=== PATIENT | male | born 1940 | race Caucasian/White ===

== ENCOUNTER → 2024-06-10 | Outpatient (CLI) | payer MEDICARE, SELFPAY ==
[2024-06-10 10:33] LABS: Basophils # (Auto) 0.1 Thou/mm3 (0.0-0.2); Basophils % (Auto) 1 % (0-2.5); Eosinophils # (Auto) 0.1 Thou/mm3 (0.0-0.5); Eosinophils % (Auto) 1 % (0-10); Hematocrit 48.1 % (41.0-53.0); Hemoglobin 17.1 g/dL (13.5-16.0); Immature Granulocytes % (Auto) 0 % (0-0); Immature Granulocytes Auto 0.01 Thou/mm3 (0.00-0.00); Lymphocytes # (Auto) 1.6 Thou/mm3 (1.0-4.8); Lymphocytes % (Auto) 28 % (10-50); Mean Corpuscular HGB Conc 35.6 g/dl (31.0-37.0); Mean Corpuscular Hemoglobin 32.3 pg (25.0-35.0); Mean Corpuscular Volume 91 fL (80-100); Monocytes # (Auto) 0.5 Thou/mm3 (0.0-0.8); Monocytes % (Auto) 9 % (0-12); Neutrophils # (Auto) 3.5 Thou/mm3 (1.8-7.7); Neutrophils % (Auto) 60 % (37-80); Nucleated Red Blood Cell % 0 /100 WBC (0); Platelet Count 209 Thou/mm3 (140-440); White Blood Count 5.8 Thou/mm3 (3.8-10.6)
[2024-06-10 10:48] LABS: Alanine Aminotransferase 74 U/L (10-49); Albumin, Serum 4.4 gm/dL (3.4-4.8); Albumin/Globulin Ratio 1.6 (1.2-2.2); Alkaline Phosphatase 61 U/L (46-116); Anion Gap 9 (7-16); Aspartate Amino Transferase 45 U/L (0-34); BUN/Creatinine Ratio 15 Ratio (12-20); Blood Urea Nitrogen 16 mg/dL (9-23); Calcium 9.4 mg/dL (8.3-10.6); Calcium (Corrected) 9.4 mg/dL (8.5-10.1); Carbon Dioxide 26.7 mMol/L (20.0-31.0); Cardiac Risk Estimate 6.7 RATIO (4.0-6.7); Chloride 108 mMol/L (98-107); Cholesterol 221 mg/dL (132-200); Creatinine (Component) 1.1 mg/dL (0.6-1.3); Globulin 2.7 gm/dL (2.3-3.5); Glucose 100 mg/dL (74-106); HDL Cholesterol 33 mg/dL (40-60); LDL Cholesterol,Calculated 165 mg/dL (0-130); Osmolality,Calculated 288 (275-295); Sodium 144 mMol/L (136-145); Thyroid Stimulating Hormone 5.49 uIU/mL (0.55-4.78); Total Protein 7.1 gm/dL (5.7-8.2); Triglycerides 116 mg/dL (30-150); eGFR > 60 See Note
== END | disposition home or self-care (01) ==
LOC: COPL 09:37
PROVIDERS: PCP Family Medicine; Referring Provider Nurse Practitioner Family; Visit Provider Nurse Practitioner Family
DX: Z00.00 Encounter for general adult medical examination without abnormal findings (principal)
CPT/HCPCS: 36415; 80053; 80061; 84443; 85025

== ENCOUNTER → 2024-06-27 | Outpatient (CLI) | payer MEDICARE, SELFPAY ==
--- NOTE | 2024-06-27 11:30 | XR_ITS ---
Examination: Abdomen sonogram, complete Date and time of exam: June 27, 2024 1133 hours INDICATIONS: Elevated liver function tests on laboratory examination 4 weeks ago. Technique: Multiple real-time grayscale transabdominal sonographic images of the abdomen have been obtained. Findings: Multiple gallstones Gallbladder wall is thickened 0.45 cm Common bile duct 0.4 cm Pancreatic head 2.0 cm Mid distal aorta visualized not enlarged Liver 14.4 cm fatty infiltration Normal hepatopedal portal venous flow IVC obscured by bowel gas Right kidney 10.7 cm renal cortex 1.3 cm 15 mm midpole cyst Minimal hydronephrosis Left kidney 11.6 cm cortex 2.4 cm 9 mm calculus Mild hydronephrosis Spleen 10.2 cm IMPRESSION: Cholelithiasis, consider HIDA scan follow-up to exclude cystic duct obstruction Fatty liver Minimal right mild left hydronephrosis 9 mm left renal calculus
[2024-06-27 15:06] LABS: Ferritin 278 ng/mL (10.5-307.3)
== END | disposition home or self-care (01) ==
LOC: CDIM 11:21 → COPL 11:56
PROVIDERS: PCP Family Medicine; Referring Provider Nurse Practitioner Family; Visit Provider Radiology Diagnostic Radiology
DX: K80.20 Calculus of gallbladder without cholecystitis without obstruction (principal); K76.0 Fatty (change of) liver, not elsewhere classified; N13.2 Hydronephrosis with renal and ureteral calculous obstruction; D58.2 Other hemoglobinopathies
CPT/HCPCS: 36415; 76700; 82728

== ENCOUNTER → 2024-08-15 | Outpatient (CLI) | payer MEDICARE, SELFPAY ==
[2024-08-15 09:04] LABS: Flow Cytometry* See Sep Rpt; Misc Send Out* See Sep Rpt; Quantiferon-TB* See Sep Rpt
[2024-08-15 09:32] LABS: Basophils # (Auto) 0.1 Thou/mm3 (0.0-0.2); Basophils % (Auto) 1 % (0-2.5); Eosinophils # (Auto) 0.1 Thou/mm3 (0.0-0.5); Eosinophils % (Auto) 3 % (0-10); Hematocrit 47.7 % (41.0-53.0); Hemoglobin 16.4 g/dL (13.5-16.0); Immature Granulocytes Auto 0.02 Thou/mm3 (0.00-0.00); Immature Reticulocyte Fraction 4.6 % (2.3-13.4); Lymphocytes # (Auto) 1.3 Thou/mm3 (1.0-4.8); Lymphocytes % (Auto) 27 % (10-50); Mean Corpuscular HGB Conc 34.4 g/dl (31.0-37.0); Mean Corpuscular Hemoglobin 32.3 pg (25.0-35.0); Mean Corpuscular Volume 94 fL (80-100); Monocytes # (Auto) 0.5 Thou/mm3 (0.0-0.8); Monocytes % (Auto) 10 % (0-12); Neutrophils # (Auto) 2.9 Thou/mm3 (1.8-7.7); Neutrophils % (Auto) 59 % (37-80); Nucleated Red Blood Cell # 0.00 Thou/mm3 (0.00-0.00); Nucleated Red Blood Cell % 0 /100 WBC (0); Platelet Count 184 Thou/mm3 (140-440); RDW Standard Deviation 43.8 fL (35.1-43.9); Red Blood Count 5.07 Miln/mm3 (4.50-5.90); Reticulocyte % (Auto) 1.5 % (0.5-1.5); Reticulocyte Absolute Auto 77.6 Biln/L (25.0-75.0); Reticulocyte Hgb Content 36.6 pg (28.0-35.0); White Blood Count 4.9 Thou/mm3 (3.8-10.6)
[2024-08-15 09:55] LABS: Alanine Aminotransferase 40 U/L (10-49); Albumin, Serum 4.2 gm/dL (3.4-4.8); Albumin/Globulin Ratio 1.7 (1.2-2.2); Alkaline Phosphatase 61 U/L (46-116); Anion Gap 10 (7-16); Aspartate Amino Transferase 27 U/L (0-34); BUN/Creatinine Ratio 15 Ratio (12-20); Bilirubin,Total 0.6 mg/dL (0.3-1.2); Blood Urea Nitrogen 15 mg/dL (9-23); Calcium 9.3 mg/dL (8.3-10.6); Calcium (Corrected) 9.3 mg/dL (8.5-10.1); Carbon Dioxide 25.9 mMol/L (20.0-31.0); Chloride 107 mMol/L (98-107); Creatinine (Component) 1.0 mg/dL (0.6-1.3); Globulin 2.5 gm/dL (2.3-3.5); Glucose 78 mg/dL (74-106); LDH (Lactate Dehydrogenase) 186 U/L (120-246); Osmolality,Calculated 284 (275-295); Potassium 4.1 mMol/L (3.4-5.1); Sodium 143 mMol/L (136-145); Total Protein 6.7 gm/dL (5.7-8.2); eGFR > 60 See Note
[2024-08-15 10:03] LABS: Folate 11.85 ng/mL (>5.38); Vitamin B12 217 pg/mL (211-911)
[2024-08-15 10:04] LABS: Ferritin 310 ng/mL (10.5-307.3); Iron 86 mcg/dL (65-175); Percent Iron Saturation 31 % (20-55); Prostate Specific Antigen 4.47 ng/mL (0-4.00); Total Iron Binding Capacity 273 mcg/dL (250-425); Unsaturated Iron Binding 187 (225-295)
[2024-08-15 13:44] LABS: Cocci Serology, IgM Negative (Negative)
[2024-08-16 12:42] LABS: Cocci Serology, IgG Negative (Negative)
[2024-08-18 06:32] LABS: Erythropoietin (EPO)* 8.9 mIU/mL (2.6-18.5)
== END | disposition home or self-care (01) ==
LOC: COPL 08:40 → SCTO 08:48
PROVIDERS: PCP Family Medicine; Referring Provider Internal Medicine Hematology & Oncology; Visit Provider Internal Medicine Hematology & Oncology
DX: D75.9 Disease of blood and blood-forming organs, unspecified (principal); C61 Malignant neoplasm of prostate
CPT/HCPCS: 36415; 80053; 82607; 82668; 82728; 82746; 83540; 83550; 83615; 84153; 85025; 85046; 86331; 86480; 86635

== ENCOUNTER 2024-09-07 10:29 | Outpatient (RCR) | payer MEDICARE, SELFPAY ==
--- NOTE | 2024-08-28 23:58 | CTCCONSULT_ITS ---
Patient: RITIKA MCMAHAN : 1940 MR#: [id number] Page 2 of 5 CONSULTATION NOTE DATE OF CONSULTATION: 08/11/2024 NAME: RITIKA MCMAHAN ACCOUNT: [id number] : 1940 AGE: 83 REFERRING PHYSICIAN: Laura Jara MD PRIMARY PHYSICIAN: REASON FOR VISIT: Mr. Mcmahan, an 83-year-old male with prostate cancer, presented with elevated PSA, high hemoglobin, and a 6-month hacking cough. He reports snoring but denies smoking, alcohol use, or current medications. Laboratory tests revealed polycythemia with very high hemoglobin and hematocrit. Management included scheduling phlebotomy with IV fluids, ordering JAK2 mutation test, erythropoietin levels, CBC, comprehensive metabolic panel, chest/abdomen/pelvis CT, and MRI of liver and spleen. A sleep study was ordered to evaluate for obstructive sleep apnea as a potential cause of secondary polycythemia. 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 He reports a history of prostate cancer and a hacking cough persisting for 6 months. The patient denies smoking, alcohol consumption, or use of recreational drugs. He reports snoring, as noted by his , but has never had a sleep study or been diagnosed with sleep apnea. Mr. Mcmahan denies any problems with depression. He has received a flu shot since September and has had the original two COVID vaccinations. Mr. Mcmahan is not currently taking any medications, including [id number] supplements or vitamins. He denies receiving any injections, such as Lupron, from Dr. Dean. The patient reports no known allergies to medications. The patient's hacking cough has been ongoing for 6 months, but no further details about its characteristics or impact on daily functioning were provided. Mr. Mcmahan denies taking fosinopril. Review of Systems General: Negative for fever, chills, fatigue, muscle aches, appetite or weight changes. Respiratory: Positive for snoring, hacking cough for 6 months. Psychiatric: Negative for depression. Objective: Laboratory, Imaging, and Diagnostic Test Results - PSA: Elevated (specific value not provided) - Hemoglobin: Very high (specific value not provided) - Hematocrit: Too high (specific value not provided) OTHER MEDICAL HISTORY/CONDITIONS: PROSTATE CA DX 2019, DR. DEAN ERYTHROCYTOSIS HYPOTHYROID HEARING LOSS RT KNEE REPAIR 2022 HERNIA REPAIR 2009 FAMILY HISTORY: Patient?denies?family?cancer?history. 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 Tobacco?Use:?Denies ETOH?Use:?Denies Drug?Note:?Denies Social?History?Note:?Lives?with? MEDICATIONS: 1. No Medications Medications Last Reconciled by Billie Andre RN on 08/11/2024 ALLERGIES: No Known Drug Allergies REVIEW OF SYSTEMS: A complete 14-point review of systems was performed and is negative except as noted in interval history. PHYSICAL EXAMINATION: VITAL SIGNS: B/P?128/77, Height?71?inches, Oxygen?Saturation?95% Weight?197?lbs PAIN: 0 - No pain ECOG Performance Status: 0 - Asymptomatic and fully active GENERAL APPEARANCE: Appears well, in no apparent distress, appropriately interactive. HEENT: Normocephalic, no temporal wasting, normal conjunctiva, no scleral icterus, normal hearing, lips without lesions, neck normal range of motion. CARDIOVASCULAR: Not assessed. PULMONARY: Normal respiratory effort, no respiratory distress or use of accessory muscles, speaking in full sentences, no tachypnea. EXTREMITIES: No pedal edema or cyanosis. SKIN: Normal skin appearance. NEUROLOGIC: Alert and oriented x4. PSHYCHIATRIC: Appropriate affect, mood normal, behavior normal, intact thought and speech. LABORATORY DATA: I have personally reviewed and interpreted each of the patient?s relevant lab tests, abnormal findings are below: Date 08/15/24 ??WHITE?BLOOD?COUNT?(Thou/mm3) 4.9 ??RED?BLOOD?COUNT?(Miln/mm3) 5.07 ??HEMOGLOBIN?(gm/dl) 16.4?H ??HEMATOCRIT?(%) 47.7 ??PLATELET?COUNT?(Thou/mm3) 184 ??NEUTROPHILS?%,?AUTO?(%) 59 ??LYMPH?%,?AUTO?(%) 27 ??NEUTROPHILS,?AUTO?(Thou/mm3) 2.9 ??GLUCOSE,RANDOM?(mg/dL) 78 ??BLOOD?UREA?NITROGEN?(mg/dL) 15 ??CREATININE?(mg/dL) 1.00 ??SODIUM?(mmol/L) 143 ??POTASSIUM?(mmol/L) 4.1 ??CHLORIDE?(mmol/L) 107 ??CrCl?(CandG)?(ml/min) 71.98 ??AST/SGOT?(Unit/L) 27 ??ALT/SGPT?(Unit/L) 40 ??ALKALINE?PHOSPHATASE?(Unit/L) 61 ??BILIRUBIN,?TOTAL?(mg/dL) 0.6 ??PROTEIN?TOTAL?(gm/dl) 6.7 ??ALBUMIN,?SERUM?(gm/dl) 4.2 ??GLOBULIN?(gm/dl) 2.5 ??ALBUMIN/GLOBULIN?RATIO 1.7 ??CALCIUM,?SERUM?(mg/dL) 9.3 ??CALCIUM?SERUM?(CORRECTED)?(mg/dL) 9.3 ??RETICULOCYTE?ABSOLUTE?AUTO?(Biln/L) 77.6?H ??TOTAL?IRON?BINDING?CAP?(S*)?(mcg/dL) 273 ??UNBOUND?IBC?(mcg/dL) 187?L ASSESSMENT/PLAN: Assessment and Plan: 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 Polycythemia Assessment: Patient presents with significantly elevated hemoglobin levels, indicating polycythemia. This condition is causing blood hyperviscosity, which may lead to complications such as heart attacks, strokes, kidney failure, or liver failure. The etiology is unclear at this time, but possibilities include primary polycythemia vera (PV) or secondary causes. Given the patient's age (83), there is a concern for a myeloproliferative disorder. Differential diagnoses include JAK2 mutation-positive PV, secondary polycythemia due to sleep apnea (patient reports snoring), or other causes of erythrocytosis. The patient denies current use of testosterone or Lupron, which could affect red blood cell production. Plan: - Perform phlebotomy with IV fluid replacement to reduce blood viscosity - Order JAK2 mutation test - Check erythropoietin levels - Order complete blood count (CBC) to monitor hematocrit and other cell lines - Order comprehensive metabolic panel to assess kidney and liver function - Schedule MRI of liver and spleen - Advise increased water intake - Educate patient on symptoms of hyperviscosity and when to seek immediate medical attention - Follow up after initial phlebotomy to reassess hematocrit and determine frequency of future treatments (monthly to every 6 months based on response) Chronic Cough Assessment: Patient reports a 6-month history of hacking cough. Given the duration and the patient's history of prostate cancer, further investigation is warranted to rule out metastatic disease or other pulmonary pathologies. Plan: - Order CT scan of chest, abdomen, and pelvis - Consider testing for valley fever (coccidioidomycosis) given family history (grandson diagnosed) Prostate Cancer Assessment: Patient has a history of prostate cancer with currently elevated PSA. The relationship between the elevated PSA and the patient's polycythemia is unclear at this time and requires further investigation. Plan: - Review recent PSA results - Coordinate care with urologist/oncologist managing prostate cancer Suspected Sleep Apnea Assessment: Patient reports snoring according to his . Given the elevated hemoglobin, there is a suspicion of sleep apnea contributing to secondary polycythemia. Patient has not had a previous sleep study or been prescribed CPAP therapy. Plan: - Refer for sleep study to evaluate for obstructive sleep apnea Suspected Fatty Liver Assessment: There is a suspicion of fatty liver disease, which may be related to the patient's overall condition. Previous ultrasound was performed, but more detailed imaging is required for accurate assessment. Plan: - Include liver assessment in ordered MRI of liver and spleen - Review results of comprehensive metabolic panel for liver function tests ORDERS: Order # Description [id number] Comprehensive Metabolic Panel - 12 + CBC with Auto Diff [id number] CHRISTOPHER - 2 Mutation Quant + Flowcytometry + Erythropoieten Level [id number] PSA [id number] MD Follow Up 4 Week [id number] Iron Panel + Ferritin + Vitamin B-12 + Folic Acid; Serum + Lactate Dehydrogenase (LDH) + Reticulocyte Count + Hereditary Hemochromatosis DNA analysis [id number] Follow Up 2 Months [id number] Therapeutic Phlebotomy, 1 Unit [id number] QuantiFERON-TB Gold Plus ([facility] TEST:[id number] CPT: 20915) + Antibody; Coccidioides Immitis [id number] CT Scan + With W/O Contrast RETURN TO CLINIC: I reviewed the diagnosis, prognosis, and recommended treatment/procedure options with the patient (and/or their legal clearance representative), including the potential benefits, risks, side effects and alternative therapies. We also discussed the option of no treatment and the possibility of clinical trial participation, if applicable. All questions were addressed, and they demonstrated understanding. They provided informed consent to proceed with the proposed plan of care. BILLING AND COMPLIANCE: I reviewed external records from providers outside my specialty as summarized above. I spent a total of 50 minutes on this patient?s care on the day of their visit excluding time spent related to any billed procedures. This time includes time spent with the patient as well as time spent documenting in the medical record, reviewing patients records and tests, obtaining history, placing orders, communicating with other healthcare professionals, counseling the patient, family or caregiver, and/or care coordination for the diagnoses above. Electronically Signed by: John Cross MD T: 11:55 PM CC: PCP: Referring: Laura Jara This document was completed utilizing speech recognition software. Grammatical errors, random word insertions, pronoun errors, and incomplete sentences are an occasional consequence of this system due to software limitations, ambient noise, and hardware issues. Any formal questions or concerns about the content, text or information contained within the body of this dictation should be directly addressed to the provider for clarification.
--- NOTE | 2024-09-07 15:02 | CTCFLWUP_ITS ---
Patient: RITIKA MCMAHAN : 1940 Page 2 of 2 FOLLOW UP NOTE DATE OF SERVICE: 09/07/2024 NAME: RITIKA MCMAHAN ACCOUNT: [id number] : 1940 AGE: 83 INTERVAL HISTORY: Quan Cuevas, an 83-year-old male with prostate cancer, presented for follow-up on lab results, elevated PSA, polycythemia, and a 6-month hacking cough. Testing revealed high hemoglobin (16.4 g/dL) and hematocrit (36.6%), with negative JAK2, JAK2-MPL, and calreticulin mutation tests. Management included scheduling phlebotomy with hydration, ordering CT chest/abdomen/pelvis, MRI of liver and spine, sleep apnea study for snoring, and continued monitoring of PSA and blood counts. Referral to GI for evaluation of gastroesophageal reflux by EGD and a routine colonoscopy HISTORY OF PRESENT ILLNESS: Chief Complaint Follow-up on lab results and imaging studies for prostate cancer, elevated PSA, polycythemia, and 6-month hacking cough History of Present Illness Quan Cuevas is an 83-year-old male with a history of prostate cancer presenting for follow-up on recent lab tests. Mr. Mcmahan has been experiencing gastroesophageal reflux symptoms cough and bloating at night Mr. Cuevas denies smoking and alcohol use. He has been undergoing evaluation for polycythemia, as previous lab tests revealed elevated hemoglobin and hematocrit levels. The patient was scheduled for phlebotomy and additional testing, including mutation testing, erythropoietin level, CBC, comprehensive panel, imaging studies, and a sleep apnea study. The patient's cough has been persistent for half a year, but further details about its characteristics or impact on daily functioning are not provided. The reported snoring suggests potential sleep-related issues, though the extent and effects on the patient's quality of life are not specified. Review of Systems Respiratory: Positive for 6-month hacking cough. Other: Positive for snoring. OTHER MEDICAL HISTORY/CONDITIONS: PROSTATE CA DX 2019, DR. DEAN ERYTHROCYTOSIS HYPOTHYROID HEARING LOSS RT KNEE REPAIR 2022 HERNIA REPAIR 2009 FAMILY HISTORY: Patient?denies?family?cancer?history. 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 Tobacco?Use:?Denies ETOH?Use:?Denies Drug?Note:?Denies Social?History?Note:?Lives?with? MEDICATIONS: 1. No Medications Medications Last Reconciled by Cheri Gregory MD on 09/07/2024 ALLERGIES: No Known Drug Allergies REVIEW OF SYSTEMS: A complete 14-point review of systems was performed and is negative except as noted in interval history. PHYSICAL EXAMINATION: VITAL SIGNS: Temperature?98.3, B/P?117/60, Oxygen?Saturation?94% Weight?194?lbs (Change?since?08/11/24:?-3?lbs) PAIN: 0 - No pain ECOG Performance Status: 1 - Symptomatic; ambulatory; restricted in strenuous activity GENERAL APPEARANCE: Appears well, in no apparent distress, appropriately interactive. HEENT: Normocephalic, no temporal wasting, normal conjunctiva, no scleral icterus, normal hearing, lips without lesions, neck normal range of motion. CARDIOVASCULAR: Not assessed. PULMONARY: Normal respiratory effort, no respiratory distress or use of accessory muscles, speaking in full sentences, no tachypnea. EXTREMITIES: No pedal edema or cyanosis. SKIN: Normal skin appearance. NEUROLOGIC: Alert and oriented x4. PSHYCHIATRIC: Appropriate affect, mood normal, behavior normal, intact thought and speech. LABORATORY DATA: I have personally reviewed and interpreted each of the patient?s relevant lab tests, abnormal findings are below: Date 08/15/24 ??WHITE?BLOOD?COUNT?(Thou/mm3) 4.9 ??RED?BLOOD?COUNT?(Miln/mm3) 5.07 ??HEMOGLOBIN?(gm/dl) 16.4?H ??HEMATOCRIT?(%) 47.7 ??PLATELET?COUNT?(Thou/mm3) 184 ??NEUTROPHILS?%,?AUTO?(%) 59 ??LYMPH?%,?AUTO?(%) 27 ??NEUTROPHILS,?AUTO?(Thou/mm3) 2.9 ??GLUCOSE,RANDOM?(mg/dL) 78 ??BLOOD?UREA?NITROGEN?(mg/dL) 15 ??CREATININE?(mg/dL) 1.00 ??SODIUM?(mmol/L) 143 ??POTASSIUM?(mmol/L) 4.1 ??CHLORIDE?(mmol/L) 107 ??CrCl?(CandG)?(ml/min) 71.98 ??AST/SGOT?(Unit/L) 27 ??ALT/SGPT?(Unit/L) 40 ??ALKALINE?PHOSPHATASE?(Unit/L) 61 ??BILIRUBIN,?TOTAL?(mg/dL) 0.6 ??PROTEIN?TOTAL?(gm/dl) 6.7 ??ALBUMIN,?SERUM?(gm/dl) 4.2 ??GLOBULIN?(gm/dl) 2.5 ??ALBUMIN/GLOBULIN?RATIO 1.7 ??CALCIUM,?SERUM?(mg/dL) 9.3 ??CALCIUM?SERUM?(CORRECTED)?(mg/dL) 9.3 ??RETICULOCYTE?ABSOLUTE?AUTO?(Biln/L) 77.6?H ??TOTAL?IRON?BINDING?CAP?(S*)?(mcg/dL) 273 ??UNBOUND?IBC?(mcg/dL) 187?L ASSESSMENT/PLAN: Assessment and Plan: 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 Polycythemia Assessment: Patient presents with significantly elevated hemoglobin levels, indicating polycythemia. This condition is causing blood hyperviscosity, which may lead to complications such as heart attacks, strokes, kidney failure, or liver failure. The etiology is unclear at this time, but possibilities include primary polycythemia vera (PV) or secondary causes. Given the patient's age (83), there is a concern for a myeloproliferative disorder. Differential diagnoses include JAK2 mutation-positive PV, secondary polycythemia due to sleep apnea (patient reports snoring), or other causes of erythrocytosis. The patient denies current use of testosterone or Lupron, which could affect red blood cell production. Plan: - Perform phlebotomy with IV fluid replacement to reduce blood viscosity -JAK2 testing is negative Erythropoietin level normal - Order complete blood count (CBC) to monitor hematocrit and other cell lines shows persistent high hematocrit - Order comprehensive metabolic panel to assess kidney and liver function - Schedule MRI of liver and spleen - Advise increased water intake - Educate patient on symptoms of hyperviscosity and when to seek immediate medical attention - Follow up after initial phlebotomy to reassess hematocrit and determine frequency of future treatments (monthly to every 6 months based on response) Chronic Cough Assessment: Patient reports a 6-month history of hacking cough. Given the duration and the patient's history of prostate cancer, further investigation is warranted to rule out metastatic disease or other pulmonary pathologies. Cough can also be part of the GERD symptoms Plan: - Order CT scan of chest, abdomen, and pelvis - Consider testing for valley fever (coccidioidomycosis) given family history (grandson diagnosed) GI referral for possible EGD- Prostate Cancer Assessment: Patient has a history of prostate cancer with currently elevated PSA. The relationship between the elevated PSA and the patient's polycythemia is unclear at this time and requires further investigation. Plan: - Review recent PSA results - Coordinate care with urologist/oncologist managing prostate cancer Suspected Sleep Apnea Assessment: Patient reports snoring according to his . Given the elevated hemoglobin, there is a suspicion of sleep apnea contributing to secondary polycythemia. Patient has not had a previous sleep study or been prescribed CPAP therapy. Plan: - Refer for sleep study to evaluate for obstructive sleep apnea Suspected Fatty Liver Assessment: There is a suspicion of fatty liver disease, which may be related to the patient's overall condition. Previous ultrasound was performed, but more detailed imaging is required for accurate assessment. Plan: - Include liver assessment in ordered MRI of liver and spleen - Review results of comprehensive metabolic panel for liver function tests ORDERS: Order # Description [id number] RETURN TO CLINIC: I reviewed the diagnosis, prognosis, and recommended treatment/procedure options with the patient (and/or their legal risk control representative), including the potential benefits, risks, side effects and alternative therapies. We also discussed the option of no treatment and the possibility of clinical trial participation, if applicable. All questions were addressed, and they demonstrated understanding. They provided informed consent to proceed with the proposed plan of care. BILLING AND COMPLIANCE: I reviewed external records from providers outside my specialty as summarized above. I spent a total of 50 minutes on this patient?s care on the day of their visit excluding time spent related to any billed procedures. This time includes time spent with the patient as well as time spent documenting in the medical record, reviewing patients records and tests, obtaining history, placing orders, communicating with other healthcare professionals, counseling the patient, family or caregiver, and/or care coordination for the diagnoses above. Electronically Signed by: John Cross MD T: 3:00 PM CC: PCP: Referring: Laura Jara This document was completed utilizing speech recognition software. Grammatical errors, random word insertions, pronoun errors, and incomplete sentences are an occasional consequence of this system due to software limitations, ambient noise, and hardware issues. Any formal questions or concerns about the content, text or information contained within the body of this dictation should be directly addressed to the provider for clarification.
== END 2024-09-08 23:59 | disposition home or self-care (01) ==
LOC: SCTC 10:29
PROVIDERS: PCP Nurse Practitioner Family; Referring Provider Nurse Practitioner Family; Visit Provider Internal Medicine Hematology & Oncology
DX: C61 Malignant neoplasm of prostate (principal); R97.21 Rising PSA following treatment for malignant neoplasm of prostate; D75.1 Secondary polycythemia; R05.3 Chronic cough; R06.83 Snoring
CPT/HCPCS: 99213; G0463

== ENCOUNTER → 2024-09-12 | Outpatient (CLI) | payer MEDICARE, SELFPAY ==
--- NOTE | 2024-09-12 15:00 | XR_ITS ---
Examination: CT chest with intravenous contrast CT abdomen with intravenous contrast CT pelvis with intravenous contrast 2-D coronal and sagittal reconstructions Time of exam: September 12, [address] abdomen pelvis April 27, 2009 INDICATIONS: Diagnosis malignant neoplasm prostate 5 years ago, staging CTDI: vol (mGy) : 16.8 DLP: DLP(mGycm): 812 Technique: Multiple axial images of the chest, abdomen and pelvis with intravenous contrast, 3.0 mm slice thickness. Images obtained post intravenous injection Isovue 370 60 cc. 2-D sagittal and coronal reconstructions. Low dose protocols were performed. One or more of the following dose reduction techniques were used; automated exposure control, adjustment of the mA and/or KV according to patient size, use of iterative reconstruction technique. Findings: No thoracic aortic aneurysm dilatation Pulmonary artery segments are not enlarged. No paratracheal tracheobronchial or bronchopulmonary adenopathy 4 mm pulmonary nodule right upper lobe image 123 4 mm pulmonary nodule left upper lobe image 163 3 mm pulmonary nodule posterior left lung image 202 No pneumonia or pulmonary edema No visualized liver or splenic lesion Gallstones No pancreatic or adrenal mass. Mild renal parenchymal scar formation No hydronephrosis No abdominal or pelvic lymphadenopathy No bowel obstruction Colonic diverticulosis, no diverticulitis Transverse prostate dimension 5.2 cm No enhancing prostate nodules Contracted urinary bladder Significant osteopenia Negative for osteoblastic metastatic disease IMPRESSION: Noncalcified pulmonary nodules as above, with this study as baseline recommend 6 month follow-up CT chest without contrast No interval metastatic disease in the abdomen or pelvis
[2024-09-12 16:31] LABS: Basophils # (Auto) 0.1 Thou/mm3 (0.0-0.2); Basophils % (Auto) 1 % (0-2.5); Eosinophils # (Auto) 0.2 Thou/mm3 (0.0-0.5); Eosinophils % (Auto) 2 % (0-10); Hematocrit 45.7 % (41.0-53.0); Hemoglobin 16.0 g/dL (13.5-16.0); Immature Granulocytes Auto 0.02 Thou/mm3 (0.00-0.00); Lymphocytes # (Auto) 2.0 Thou/mm3 (1.0-4.8); Lymphocytes % (Auto) 28 % (10-50); Mean Corpuscular HGB Conc 35.0 g/dl (31.0-37.0); Mean Corpuscular Hemoglobin 32.6 pg (25.0-35.0); Mean Corpuscular Volume 93 fL (80-100); Monocytes # (Auto) 0.7 Thou/mm3 (0.0-0.8); Monocytes % (Auto) 9 % (0-12); Neutrophils # (Auto) 4.4 Thou/mm3 (1.8-7.7); Neutrophils % (Auto) 60 % (37-80); Nucleated Red Blood Cell # 0.00 Thou/mm3 (0.00-0.00); Nucleated Red Blood Cell % 0 /100 WBC (0); Platelet Count 193 Thou/mm3 (140-440); RDW Standard Deviation 44.5 fL (35.1-43.9); Red Blood Count 4.91 Miln/mm3 (4.50-5.90); White Blood Count 7.3 Thou/mm3 (3.8-10.6)
== END | disposition home or self-care (01) ==
LOC: CCTX 15:33 → SCTO 15:58
PROVIDERS: PCP Family Medicine; Referring Provider Internal Medicine Hematology & Oncology; Visit Provider Radiology Diagnostic Radiology
DX: R91.1 Solitary pulmonary nodule (principal); C61 Malignant neoplasm of prostate; R97.20 Elevated prostate specific antigen [PSA]
CPT/HCPCS: 36415; 71260; 74177; 85025; A4649; Q9967

== ENCOUNTER 2024-09-14 15:39 | Outpatient (RCR) | payer MEDICARE, SELFPAY ==
--- NOTE | 2024-09-19 03:23 | CTCFLWUP_ITS ---
Patient: RITIKA MCMAHAN : 1940 Page 4 of 5 FOLLOW UP NOTE DATE OF SERVICE: 09/14/2024 NAME: RITIKA MCMAHAN ACCOUNT: [id number] : 1940 AGE: 83 INTERVAL HISTORY: Quan Cuevas, an 83-year-old male with prostate cancer, presented for follow-up on lab results, elevated PSA, polycythemia, and a 6-month hacking cough. Testing revealed high hemoglobin (16.4 g/dL) and hematocrit (36.6%), with negative JAK2, JAK2-MPL, and calreticulin mutation tests. Patient did not require phlebotomy and his labs improved just with oral hydration. CT chest abdomen pelvis was completed on 12 September 2024 and showed no interval metastatic disease. Testing revealed high hemoglobin (16.4 g/dL) and hematocrit (36.6%), with negative JAK2, JAK2-MPL, and calreticulin mutation tests. Management included scheduling phlebotomy with hydration,sleep apnea study for snoring, and continued carmen toring of PSA and blood counts. Referral to GI for evaluation of gastroesophageal reflux by EGD and a routine colonoscopy HISTORY OF PRESENT ILLNESS: Chief Complaint Follow-up on lab results and imaging studies for prostate cancer, elevated PSA, polycythemia, and 6-month hacking cough History of Present Illness Quan Cuevas is an 83-year-old male with a history of prostate cancer presenting for follow-up on recent lab tests. Mr. Mcmahan has been experiencing gastroesophageal reflux symptoms cough and bloating at night Mr. Cuevas denies smoking and alcohol use. He has been undergoing evaluation for polycythemia, as previous lab tests revealed elevated hemoglobin and hematocrit levels. The patient was scheduled for phlebotomy and additional testing, including mutation testing, erythropoietin level, CBC, comprehensive panel, imaging studies, and a sleep apnea study. The patient's cough has been persistent for half a year, but further details about its characteristics or impact on daily functioning are not provided. The reported snoring suggests potential sleep-related issues, though the extent and effects on the patient's quality of life are not specified. Subjective Chief Complaint Follow-up for CT scan results, high hemoglobin levels History of Present Illness Mr. Martir Cuevas presents for follow-up of his oncological care. He has a history of pulmonary nodules and elevated hemoglobin levels. The patient's recent CT scan on 09/12/2024 showed no metastatic disease in the abdomen, pelvis, or elsewhere. The previously noted pulmonary nodules and small calcium deposits in his lungs remain stable with no new findings. Mr. Cuevas has been experiencing high hemoglobin levels, which were a concern. However, his nurse reported that the numbers have decreased on their own. The clinician attributes this to possible sleep apnea and dehydration. Mr. Cuevas reports taking his prescribed vitamins regularly to maintain bone strength. He exercises daily, except on Sundays. Despite recommendations, he expresses reluctance to undergo a sleep study, citing his son's and grandson's negative experiences with sleep apnea machines. Medications and Supplements - Vitamins - Patient has been taking vitamins Review of Systems General: Negative for all symptoms. Objective Laboratory, Imaging, and Diagnostic Test Results - CT scan (09/12/2024): - Negative for metastatic disease in abdomen and pelvis - Stable pulmonary nodules - Small stable calcium deposits in lungs - PSA: 4.47 (high) - Hemoglobin: Noted as a little bit high (exact value not provided) OTHER MEDICAL HISTORY/CONDITIONS: PROSTATE CA DX 2019, DR. DEAN ERYTHROCYTOSIS HYPOTHYROID HEARING LOSS RT KNEE REPAIR 2022 HERNIA REPAIR 2023, 2009 FAMILY HISTORY: Patient?denies?family?cancer?history. 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 Tobacco?Use:?Denies ETOH?Use:?Denies Drug?Note:?Denies Social?History?Note:?Lives?with? MEDICATIONS: 1. None Medications Last Reconciled by Cheri Banks MA on 09/14/2024 ALLERGIES: No Known Drug Allergies REVIEW OF SYSTEMS: A complete 14-point review of systems was performed and is negative except as noted in interval history. PHYSICAL EXAMINATION: VITAL SIGNS: Temperature?99.6, B/P?123/82, Oxygen?Saturation?93% PAIN: 0 - No pain ECOG Performance Status: None GENERAL APPEARANCE: Appears well, in no apparent distress, appropriately interactive. HEENT: Normocephalic, no temporal wasting, normal conjunctiva, no scleral icterus, normal hearing, lips without lesions, neck normal range of motion. CARDIOVASCULAR: Not assessed. PULMONARY: Normal respiratory effort, no respiratory distress or use of accessory muscles, speaking in full sentences, no tachypnea. EXTREMITIES: No pedal edema or cyanosis. SKIN: Normal skin appearance. NEUROLOGIC: Alert and oriented x4. PSHYCHIATRIC: Appropriate affect, mood normal, behavior normal, intact thought and speech. LABORATORY DATA: I have personally reviewed and interpreted each of the patient?s relevant lab tests, abnormal findings are below: Date 08/15/24 09/12/24 ??WHITE?BLOOD?COUNT?(Thou/mm3) 4.9 7.3 ??RED?BLOOD?COUNT?(Miln/mm3) 5.07 4.91 ??HEMOGLOBIN?(gm/dl) 16.4?H 16.0 ??HEMATOCRIT?(%) 47.7 45.7 ??PLATELET?COUNT?(Thou/mm3) 184 193 ??NEUTROPHILS?%,?AUTO?(%) 59 60 ??LYMPH?%,?AUTO?(%) 27 28 ??NEUTROPHILS,?AUTO?(Thou/mm3) 2.9 4.4 ??GLUCOSE,RANDOM?(mg/dL) 78 ? ??BLOOD?UREA?NITROGEN?(mg/dL) 15 ? ??CREATININE?(mg/dL) 1.00 ? ??SODIUM?(mmol/L) 143 ? ??POTASSIUM?(mmol/L) 4.1 ? ??CHLORIDE?(mmol/L) 107 ? ??CrCl?(CandG)?(ml/min) 71.98 ? ??AST/SGOT?(Unit/L) 27 ? ??ALT/SGPT?(Unit/L) 40 ? ??ALKALINE?PHOSPHATASE?(Unit/L) 61 ? ??BILIRUBIN,?TOTAL?(mg/dL) 0.6 ? ??PROTEIN?TOTAL?(gm/dl) 6.7 ? ??ALBUMIN,?SERUM?(gm/dl) 4.2 ? ??GLOBULIN?(gm/dl) 2.5 ? ??ALBUMIN/GLOBULIN?RATIO 1.7 ? ??CALCIUM,?SERUM?(mg/dL) 9.3 ? ??CALCIUM?SERUM?(CORRECTED)?(mg/dL) 9.3 ? ??RETICULOCYTE?ABSOLUTE?AUTO?(Biln/L) 77.6?H ? ASSESSMENT/PLAN: Assessment and Plan Martir Cuevas, an elderly male patient, presented for follow-up of CT scan results and management of elevated hemoglobin levels. Surveillance for malignancy Assessment: CT scan of abdomen and pelvis performed on 09/12/2024 showed no evidence of metastatic disease. Pulmonary nodules and small calcium deposits in the lungs were noted, which have been stable on previous imaging. These findings are considered benign and age-appropriate, particularly given the patient's residence in [place]. Plan: - Repeat CT scan of the chest in 6 months for continued surveillance of pulmonary nodules Elevated hemoglobin Assessment: Patient previously had elevated hemoglobin levels, which were concerning. However, recent lab results show that hemoglobin levels have decreased without intervention. The transient elevation may have been due to a combination of factors, including possible sleep apnea and dehydration. Plan: - Monitor hemoglobin levels every 6 weeks - Order for phlebotomy if hemoglobin exceeds 45 (unit not specified) Suspected sleep apnea Assessment: Sleep apnea is suspected based on clinical presentation, including possible contribution to previously elevated hemoglobin levels. Patient reports reluctance to undergo sleep study or use CPAP machine. Plan: - Order sleep study - Educate patient on benefits of sleep study and potential CPAP therapy, including improved oxygenation and overall well-being Elevated PSA Assessment: PSA level is slightly elevated at 4.47 (units not specified). No further assessment details provided. Plan: - Continue monitoring PSA levels (frequency not specified) Suspected Sleep Apnea Assessment: Patient reports snoring according to his . Given the elevated hemoglobin, there is a suspicion of sleep apnea contributing to secondary polycythemia. Patient has not had a previous sleep study or been prescribed CPAP therapy. Plan: - Refer for sleep study to evaluate for obstructive sleep apnea. Patient advised to follow-up Suspected Fatty Liver Assessment: There is a suspicion of fatty liver disease, which may be related to the patient's overall condition. Previous ultrasound was performed, but more detailed imaging is required for accurate assessment. Patient CT scan with IV contrast was done and is negative -LFTs are all normal Bone health maintenance Assessment: Patient is taking vitamins for bone health maintenance. Plan: - Continue current vitamin regimen for bone strength ORDERS: Order # Description [id number] CBC with Auto Diff + [id number] Comprehensive Metabolic Panel - 12 [id number] Follow Up 6 Month RETURN TO CLINIC: I reviewed the diagnosis, prognosis, and recommended treatment/procedure options with the patient (and/or their legal underwriting account representative), including the potential benefits, risks, side effects and alternative therapies. We also discussed the option of no treatment and the possibility of clinical trial participation, if applicable. All questions were addressed, and they demonstrated understanding. They provided informed consent to proceed with the proposed plan of care. BILLING AND COMPLIANCE: I reviewed external records from providers outside my specialty as summarized above. I spent a total of 50 minutes on this patient?s care on the day of their visit excluding time spent related to any billed procedures. This time includes time spent with the patient as well as time spent documenting in the medical record, reviewing patients records and tests, obtaining history, placing orders, communicating with other healthcare professionals, counseling the patient, family or caregiver, and/or care coordination for the diagnoses above. Electronically Signed by: {Object.Sanct_ID*PnP.NameFL@M}, {Object.Sanct_ID*PnP.Suffix@U} D: {Object.Sanct_Date} T: {Object.Sanct_Time} CC: PCP: Referring: Laura Jara This document was completed utilizing speech recognition software. Grammatical errors, random word insertions, pronoun errors, and incomplete sentences are an occasional consequence of this system due to software limitations, ambient noise, and hardware issues. Any formal questions or concerns about the content, text or information contained within the body of this dictation should be directly addressed to the provider for clarification.
== END 2024-10-09 23:59 | disposition home or self-care (01) ==
LOC: SCTC 15:39
PROVIDERS: PCP Nurse Practitioner Family; Referring Provider Nurse Practitioner Family; Visit Provider Internal Medicine Hematology & Oncology
DX: R97.20 Elevated prostate specific antigen [PSA] (principal); R71.8 Other abnormality of red blood cells; R91.8 Other nonspecific abnormal finding of lung field; R06.83 Snoring
CPT/HCPCS: 99212; G0463

== ENCOUNTER → 2024-10-25 | Outpatient (CLI) | payer MEDICARE, SELFPAY ==
[2024-10-25 10:29] LABS: Basophils # (Auto) 0.1 Thou/mm3 (0.0-0.2); Basophils % (Auto) 1 % (0-2.5); Eosinophils # (Auto) 0.1 Thou/mm3 (0.0-0.5); Eosinophils % (Auto) 1 % (0-10); Hematocrit 45.7 % (41.0-53.0); Hemoglobin 15.9 g/dL (13.5-16.0); Immature Granulocytes Auto 0.02 Thou/mm3 (0.00-0.00); Lymphocytes # (Auto) 1.5 Thou/mm3 (1.0-4.8); Lymphocytes % (Auto) 27 % (10-50); Mean Corpuscular HGB Conc 34.8 g/dl (31.0-37.0); Mean Corpuscular Hemoglobin 32.8 pg (25.0-35.0); Mean Corpuscular Volume 94 fL (80-100); Monocytes # (Auto) 0.5 Thou/mm3 (0.0-0.8); Monocytes % (Auto) 10 % (0-12); Neutrophils # (Auto) 3.4 Thou/mm3 (1.8-7.7); Neutrophils % (Auto) 61 % (37-80); Nucleated Red Blood Cell # 0.00 Thou/mm3 (0.00-0.00); Nucleated Red Blood Cell % 0 /100 WBC (0); Platelet Count 188 Thou/mm3 (140-440); RDW Standard Deviation 45.7 fL (35.1-43.9); Red Blood Count 4.85 Miln/mm3 (4.50-5.90); White Blood Count 5.6 Thou/mm3 (3.8-10.6)
[2024-10-25 10:43] LABS: Alanine Aminotransferase 46 U/L (10-49); Albumin, Serum 4.3 gm/dL (3.4-4.8); Albumin/Globulin Ratio 1.7 (1.2-2.2); Alkaline Phosphatase 59 U/L (46-116); Anion Gap 9 (7-16); Aspartate Amino Transferase 31 U/L (0-34); BUN/Creatinine Ratio 13 Ratio (12-20); Bilirubin,Total 0.7 mg/dL (0.3-1.2); Blood Urea Nitrogen 12 mg/dL (9-23); Calcium 9.3 mg/dL (8.3-10.6); Calcium (Corrected) 9.3 mg/dL (8.5-10.1); Carbon Dioxide 24.5 mMol/L (20.0-31.0); Chloride 108 mMol/L (98-107); Creatinine (Component) 0.9 mg/dL (0.6-1.3); Globulin 2.5 gm/dL (2.3-3.5); Glucose 103 mg/dL (74-106); Osmolality,Calculated 280 (275-295); Potassium 4.1 mMol/L (3.4-5.1); Sodium 141 mMol/L (136-145); Total Protein 6.8 gm/dL (5.7-8.2); eGFR > 60 See Note
== END | disposition home or self-care (01) ==
LOC: SCTO 09:51
PROVIDERS: PCP Family Medicine; Referring Provider Internal Medicine Hematology & Oncology; Visit Provider Internal Medicine Hematology & Oncology
DX: R97.20 Elevated prostate specific antigen [PSA] (principal)
CPT/HCPCS: 36415; 80053; 85025

== ENCOUNTER → 2024-11-01 | Outpatient (CLI) | payer MEDICARE, SELFPAY ==
[2024-11-01 09:04] LABS: Prostate Specific Antigen 4.48 ng/mL (0-4.00)
== END | disposition home or self-care (01) ==
LOC: COPL 08:00
PROVIDERS: PCP Family Medicine; Referring Provider Family Medicine; Visit Provider Family Medicine
DX: C61 Malignant neoplasm of prostate (principal)
CPT/HCPCS: 36415; 84153

== ENCOUNTER → 2024-11-08 | Outpatient (BNVA) | payer MEDICARE, SELFPAY | END | disposition home or self-care (01) | PROVIDERS: PCP Internal Medicine; Referring Provider Family Medicine; Visit Provider Urology | DX: C61 Malignant neoplasm of prostate (principal); R97.20 Elevated prostate specific antigen [PSA]; R71.8 Other abnormality of red blood cells | CPT/HCPCS: 81003; 99212; G0463 ==

== ENCOUNTER → 2024-12-06 | Outpatient (CLI) | payer MEDICARE, SELFPAY ==
[2024-12-06 11:07] LABS: Basophils # (Auto) 0.1 Thou/mm3 (0.0-0.2); Basophils % (Auto) 1 % (0-2.5); Eosinophils # (Auto) 0.1 Thou/mm3 (0.0-0.5); Eosinophils % (Auto) 1 % (0-10); Hematocrit 48.9 % (41.0-53.0); Hemoglobin 16.5 g/dL (13.5-16.0); Immature Granulocytes Auto 0.02 Thou/mm3 (0.00-0.00); Lymphocytes # (Auto) 1.8 Thou/mm3 (1.0-4.8); Lymphocytes % (Auto) 32 % (10-50); Mean Corpuscular HGB Conc 33.7 g/dl (31.0-37.0); Mean Corpuscular Hemoglobin 32.0 pg (25.0-35.0); Mean Corpuscular Volume 95 fL (80-100); Monocytes # (Auto) 0.5 Thou/mm3 (0.0-0.8); Monocytes % (Auto) 10 % (0-12); Neutrophils # (Auto) 3.1 Thou/mm3 (1.8-7.7); Neutrophils % (Auto) 56 % (37-80); Nucleated Red Blood Cell # 0.00 Thou/mm3 (0.00-0.00); Nucleated Red Blood Cell % 0 /100 WBC (0); Platelet Count 179 Thou/mm3 (140-440); RDW Standard Deviation 44.9 fL (35.1-43.9); Red Blood Count 5.15 Miln/mm3 (4.50-5.90); White Blood Count 5.6 Thou/mm3 (3.8-10.6)
[2024-12-06 11:16] LABS: Alanine Aminotransferase 47 U/L (10-49); Albumin, Serum 4.7 gm/dL (3.4-4.8); Albumin/Globulin Ratio 1.9 (1.2-2.2); Alkaline Phosphatase 60 U/L (46-116); Anion Gap 8 (7-16); Aspartate Amino Transferase 35 U/L (0-34); BUN/Creatinine Ratio 12 Ratio (12-20); Bilirubin,Total 0.8 mg/dL (0.3-1.2); Blood Urea Nitrogen 11 mg/dL (9-23); Calcium 9.5 mg/dL (8.3-10.6); Calcium (Corrected) 9.5 mg/dL (8.5-10.1); Carbon Dioxide 26.6 mMol/L (20.0-31.0); Chloride 106 mMol/L (98-107); Creatinine (Component) 0.9 mg/dL (0.6-1.3); Globulin 2.5 gm/dL (2.3-3.5); Glucose 98 mg/dL (74-106); Osmolality,Calculated 280 (275-295); Potassium 4.5 mMol/L (3.4-5.1); Sodium 141 mMol/L (136-145); Total Protein 7.2 gm/dL (5.7-8.2); eGFR > 60 See Note
== END | disposition home or self-care (01) ==
LOC: SCTO 09:03
PROVIDERS: PCP Family Medicine; Referring Provider Internal Medicine Hematology & Oncology; Visit Provider Internal Medicine Hematology & Oncology
DX: R97.20 Elevated prostate specific antigen [PSA] (principal)
CPT/HCPCS: 36415; 80053; 85025

== ENCOUNTER 2024-12-07 13:03 | Outpatient (RCR) | payer MEDICARE, SELFPAY | END 2024-12-09 23:59 | disposition home or self-care (01) | LOC: SCTC 13:03 | PROVIDERS: PCP Family Medicine; Referring Provider Family Medicine; Visit Provider Internal Medicine Hematology & Oncology | DX: D75.1 Secondary polycythemia (principal); C61 Malignant neoplasm of prostate | CPT/HCPCS: 99195 ==

== ENCOUNTER → 2024-12-21 | Outpatient (CLI) | payer MEDICARE, SELFPAY ==
[2024-12-21 12:07] LABS: Basophils # (Auto) 0.0 Thou/mm3 (0.0-0.2); Basophils % (Auto) 1 % (0-2.5); Eosinophils # (Auto) 0.1 Thou/mm3 (0.0-0.5); Eosinophils % (Auto) 2 % (0-10); Hematocrit 45.0 % (41.0-53.0); Hemoglobin 15.4 g/dL (13.5-16.0); Immature Granulocytes Auto 0.01 Thou/mm3 (0.00-0.00); Lymphocytes # (Auto) 1.7 Thou/mm3 (1.0-4.8); Lymphocytes % (Auto) 34 % (10-50); Mean Corpuscular HGB Conc 34.2 g/dl (31.0-37.0); Mean Corpuscular Hemoglobin 32.4 pg (25.0-35.0); Mean Corpuscular Volume 95 fL (80-100); Monocytes # (Auto) 0.5 Thou/mm3 (0.0-0.8); Monocytes % (Auto) 9 % (0-12); Neutrophils # (Auto) 2.9 Thou/mm3 (1.8-7.7); Neutrophils % (Auto) 55 % (37-80); Nucleated Red Blood Cell # 0.00 Thou/mm3 (0.00-0.00); Nucleated Red Blood Cell % 0 /100 WBC (0); Platelet Count 211 Thou/mm3 (140-440); RDW Standard Deviation 44.5 fL (35.1-43.9); Red Blood Count 4.76 Miln/mm3 (4.50-5.90); White Blood Count 5.2 Thou/mm3 (3.8-10.6)
== END | disposition home or self-care (01) ==
LOC: SCTO 10:12
PROVIDERS: PCP Family Medicine; Referring Provider Internal Medicine Hematology & Oncology; Visit Provider Internal Medicine Hematology & Oncology
DX: R97.20 Elevated prostate specific antigen [PSA] (principal)
CPT/HCPCS: 36415; 85025

== ENCOUNTER → 2025-01-24 | Outpatient (CLI) | payer MEDICARE, SELFPAY ==
[2025-01-24 09:43] LABS: Basophils # (Auto) 0.1 Thou/mm3 (0.0-0.2); Basophils % (Auto) 1 % (0-2.5); Eosinophils # (Auto) 0.3 Thou/mm3 (0.0-0.5); Eosinophils % (Auto) 3 % (0-10); Hematocrit 46.9 % (41.0-53.0); Hemoglobin 16.3 g/dL (13.5-16.0); Immature Granulocytes Auto 0.03 Thou/mm3 (0.00-0.00); Lymphocytes # (Auto) 1.8 Thou/mm3 (1.0-4.8); Lymphocytes % (Auto) 21 % (10-50); Mean Corpuscular HGB Conc 34.8 g/dl (31.0-37.0); Mean Corpuscular Hemoglobin 32.7 pg (25.0-35.0); Mean Corpuscular Volume 94 fL (80-100); Monocytes # (Auto) 0.8 Thou/mm3 (0.0-0.8); Monocytes % (Auto) 9 % (0-12); Neutrophils # (Auto) 5.7 Thou/mm3 (1.8-7.7); Neutrophils % (Auto) 66 % (37-80); Nucleated Red Blood Cell # 0.00 Thou/mm3 (0.00-0.00); Nucleated Red Blood Cell % 0 /100 WBC (0); Platelet Count 194 Thou/mm3 (140-440); RDW Standard Deviation 43.5 fL (35.1-43.9); Red Blood Count 4.99 Miln/mm3 (4.50-5.90); White Blood Count 8.7 Thou/mm3 (3.8-10.6)
[2025-01-24 10:13] LABS: Alanine Aminotransferase 38 U/L (10-49); Albumin, Serum 4.7 gm/dL (3.4-4.8); Albumin/Globulin Ratio 1.7 (1.2-2.2); Alkaline Phosphatase 69 U/L (46-116); Anion Gap 7 (7-16); Aspartate Amino Transferase 26 U/L (0-34); BUN/Creatinine Ratio 12 Ratio (12-20); Bilirubin,Total 0.7 mg/dL (0.3-1.2); Blood Urea Nitrogen 11 mg/dL (9-23); Calcium 9.2 mg/dL (8.3-10.6); Calcium (Corrected) 9.2 mg/dL (8.5-10.1); Carbon Dioxide 27.6 mMol/L (20.0-31.0); Chloride 105 mMol/L (98-107); Creatinine (Component) 0.9 mg/dL (0.6-1.3); Globulin 2.7 gm/dL (2.3-3.5); Glucose 96 mg/dL (74-106); Osmolality,Calculated 278 (275-295); Potassium 4.4 mMol/L (3.4-5.1); Sodium 140 mMol/L (136-145); Total Protein 7.4 gm/dL (5.7-8.2); eGFR > 60 See Note
== END | disposition home or self-care (01) ==
LOC: COPL 08:23
PROVIDERS: PCP Family Medicine; Referring Provider Internal Medicine Hematology & Oncology; Visit Provider Internal Medicine Hematology & Oncology
DX: R97.20 Elevated prostate specific antigen [PSA] (principal)
CPT/HCPCS: 36415; 80053; 85025

== ENCOUNTER 2025-01-25 13:31 | Outpatient (RCR) | payer MEDICARE, SELFPAY | END 2025-02-08 23:59 | disposition home or self-care (01) | LOC: SCTC 13:31 | PROVIDERS: Referring Provider Internal Medicine Hematology & Oncology; Visit Provider Internal Medicine Hematology & Oncology | DX: D75.1 Secondary polycythemia (principal); C61 Malignant neoplasm of prostate; R05.9 Cough, unspecified; R97.20 Elevated prostate specific antigen [PSA] | CPT/HCPCS: 96360; 99195; J7040 ==